=== PATIENT | female | born 1965 | race Caucasian/White ===

== ENCOUNTER 2020-02-05 16:10 | Emergency (ER) | payer BC ==
[~2020-02-05] VITALS: Ht 157.5 cm; Wt 68.2 kg
[2020-02-05 16:21] VITALS: Ht 157.5 cm; Wt 68.2 kg
[2020-02-05 17:07] VITALS: BP 109/63
[2020-02-05] MEDS ORDERED: HYDROCODON-ACE1 EA10 PO (17:18)
== END 2020-02-05 17:37 | disposition home or self-care (01) ==
LOC: D.ER 16:10
DX: S82.891A Other fracture of right lower leg, initial encounter for closed fracture (principal); W19.XXXA Unspecified fall, initial encounter; Y93.01 Activity, walking, marching and hiking; Y92.89 Other specified places as the place of occurrence of the external cause